=== PATIENT | male | born 1985 ===

== ENCOUNTER 2025-04-15 13:05 | Inpatient (IN) | payer BC, OTHER ==
[~2025-04-15] VITALS: Ht 175.3 cm; Wt 128.2 kg
[2025-04-15 14:45] VITALS: BP 135/83
[2025-04-15] MEDS ORDERED: BUPR75 PO (15:40)
[2025-04-15] MEDS ORDERED: DECARA1250 MC1 PO (15:43)
[2025-04-15] MEDS ORDERED: FAMO20 PO (15:44)
[2025-04-15] MEDS ORDERED: FARXIGA10 MG PO (15:44)
[2025-04-15] MEDS ORDERED: FENO145 PO (15:45)
[2025-04-15] MEDS ORDERED: NOVOLOG100 UNIT/2 SC (15:46)
[2025-04-15] MEDS ORDERED: Crestor40 MG PO (15:47)
[2025-04-15] MEDS ORDERED: BASAGLAR K100 UNIT/1 SC (15:47)
[2025-04-15 16:13] VITALS: BP 143/88
[2025-04-15] MEDS ORDERED: Cefepime HCl 2,000 MG in NS 100 ML IV SCH (16:30)
[2025-04-15] MEDS ORDERED: MetroNIDAZOLE 500MG/NS 100 ml 100 ML IV SCH (16:30)
[2025-04-15] MEDS ORDERED: Vancomycin (Pharmacy Consult) IV SCH (17:00)
[2025-04-15] MEDS ORDERED: NS 1,000 ML IV SCH (17:00)
[2025-04-15] MEDS ORDERED: OxyCODONE 5 mg/Acetamin 325 mg TABLET PO PRN (17:05)
[2025-04-15] MEDS ORDERED: Vancomycin HCL 2,500 MG in NS 500 ML IV ONE (18:00)
[2025-04-15 18:15] LABS: BASOPHILS ABSOLUTE AUTO 0.05 K/mm3 (0.00-0.23); BASOPHILS PERCENT AUTO 0 % (0-2); EOSINOPHILS ABSOLUTE AUTO 0.19 K/mm3 (0.00-0.68); EOSINOPHILS PERCENT AUTO 1 % (0-6); Hematocrit 25.6 % (37.0-53.0); Hemoglobin 7.8 g/dL (13.5-17.5); IMMATURE GRAN ABSOLUTE AUTO 0.17 K/mm3 (0.00-0.10); IMMATURE GRAN PERCENT AUTO 1 % (0-1); LYMPHOCYTES ABSOLUTE AUTO 0.65 K/mm3 (0.84-5.20); LYMPHOCYTES PERCENT AUTO 5 % (21-46); MONOCYTES ABSOLUTE AUTO 1.20 K/mm3 (0.16-1.47); MONOCYTES PERCENT AUTO 9 % (4-13); Mean Corpuscular HGB Conc 30.5 g/dL (31.5-36.5); Mean Corpuscular Volume 87 fL (80-100); NEUTROPHILS ABSOLUTE AUTO 11.56 K/mm3 (1.96-9.15); NEUTROPHILS PERCENT AUTO 84 % (41-73); NRBC ABSOLUTE 0.02 K/mm3 (0.00-0.02); NRBC Auto 0.1 /100 WBC (0.0-0.2); Platelet Count 309 K/mm3 (150-400); RDW Coefficient Variation 16.4 % (11.7-14.2); RDW Standard Deviation 52.3 fL (35.1-46.3)
[2025-04-15 19:22] LABS: Alanine Aminotransfer (ALT/SGP 53 U/L (12-78); Albumin, Blood 1.9 g/dL (3.4-5.0); Albumin/Globulin Ratio 0.3 (0.8-1.8); Anion Gap 11 mmol/L (3-11); Aspartate Aminotrans (AST/SGOT 147 U/L (12-37); Bilirubin, Total 0.6 mg/dL (0.1-1.0); Blood Urea Nitrogen 92 mg/dL (8-24); C-REACTIVE PROTEIN, EXT RANGE >19.000 mg/dL (0.000-0.300); CO2, Blood 21 mmol/L (21-32); Calcium, Blood 8.7 mg/dL (8.5-10.1); Chloride, Blood 107 mmol/L (98-108); Creatinine, Blood 7.42 mg/dL (0.60-1.20); Globulin, Blood 5.5 g/dL (2.2-4.0); Glucose, Blood 164 mg/dL (70-99); Potassium, Blood 5.2 mmol/L (3.5-5.5); Sodium, Blood 134 mmol/L (136-145); Total Protein, Blood 7.4 g/dL (6.4-8.2)
--- NOTE | 2025-04-15 19:32 | NUR ---
RIGHT FOOT ULCER--DRESSING APPLIED DRESSED RIGHT FOOT WITH STERILE GAUZE AND MEDIPORE TAPE. WRAPPED FOOT WITH ROLLED GAUZE AND SECURED WITH TAPE. WRAPPED WITH TRISTAN WRAP. PT TOLERATED WELL. PT REPORTS OCCASIONAL SHARP SHOOTING PAIN TO RIGHT FOOT. WOUND NOTED TO HAVE SMALL AMOUNT OF PURULENT DRAINAGE AND MALODOROUS. CONSULT TO PODIATRY, DR LAL DONE ON DAY SHIFT.
[2025-04-15 19:34] LABS: Ferritin, Serum 912.0 ng/mL (26-388); Total Iron Binding Capacity 265.0 ug/dL (250-450)
[2025-04-15 20:17] LABS: Source, Urine Voided
[2025-04-15 20:20] VITALS: BP 143/84
[2025-04-15 20:27] LABS: Bilirubin, Urine Neg (Neg); Color, Urine Yellow (P-Yellow); Glucose Qualitative, Urine 3+ (Neg); Ketones, Urine Neg (Neg); Leukocyte Esterase, Urine Neg (Neg); Protein, Urine 4+ (Neg); Specific Gravity, Urine 1.015 (1.003-1.022); Urobilinogen, Urine NORM (Normal)
[2025-04-15] MEDS ORDERED: Heparin Sodium,Porcine 5,000 UNIT/0.5 ML SDV SC SCH (21:00)
[2025-04-15] MEDS ORDERED: Insulin Human Lispro 100 Units/ML 3ML Syringe SC SCH (21:00)
[2025-04-15] MEDS ORDERED: Insulin Glargine,Hum.Rec.Anlog 100 UNIT/ML 3MLSYR SC SCH (21:00)
[2025-04-16] VITALS (18 sets, daily range): BP systolic 114–145; BP diastolic 72–91
[2025-04-16 06:49] LABS: BASOPHILS ABSOLUTE AUTO 0.07 K/mm3 (0.00-0.23); BASOPHILS PERCENT AUTO 1 % (0-2); EOSINOPHILS ABSOLUTE AUTO 0.24 K/mm3 (0.00-0.68); EOSINOPHILS PERCENT AUTO 2 % (0-6); Hematocrit 23.0 % (37.0-53.0); Hemoglobin 7.1 g/dL (13.5-17.5); IMMATURE GRAN ABSOLUTE AUTO 0.35 K/mm3 (0.00-0.10); IMMATURE GRAN PERCENT AUTO 2 % (0-1); LYMPHOCYTES ABSOLUTE AUTO 0.67 K/mm3 (0.84-5.20); LYMPHOCYTES PERCENT AUTO 4 % (21-46); MONOCYTES ABSOLUTE AUTO 1.20 K/mm3 (0.16-1.47); MONOCYTES PERCENT AUTO 8 % (4-13); Mean Corpuscular HGB Conc 30.9 g/dL (31.5-36.5); Mean Corpuscular Volume 86 fL (80-100); NEUTROPHILS ABSOLUTE AUTO 12.71 K/mm3 (1.96-9.15); NEUTROPHILS PERCENT AUTO 83 % (41-73); NRBC ABSOLUTE 0.00 K/mm3 (0.00-0.02); NRBC Auto 0.0 /100 WBC (0.0-0.2); Platelet Count 325 K/mm3 (150-400); RDW Coefficient Variation 16.5 % (11.7-14.2); RDW Standard Deviation 53.0 fL (35.1-46.3)
[2025-04-16 07:19] LABS: Albumin, Blood 1.9 g/dL (3.4-5.0); Anion Gap 13 mmol/L (3-11); Blood Urea Nitrogen 99 mg/dL (8-24); CO2, Blood 19 mmol/L (21-32); Calcium, Blood 8.5 mg/dL (8.5-10.1); Chloride, Blood 108 mmol/L (98-108); Creatinine, Blood 7.59 mg/dL (0.60-1.20); Glucose, Blood 128 mg/dL (70-99); Phosphorus, Blood 4.4 mg/dL (2.5-4.9); Potassium, Blood 5.3 mmol/L (3.5-5.5); Sodium, Blood 135 mmol/L (136-145); Vancomycin, Random 31.6 ug/mL
[2025-04-16] MEDS ORDERED: Cefepime HCl 1,000 MG in NS 100 ML IV SCH (09:00)
[2025-04-16] MEDS ORDERED: Lidocaine HCl 2% 10 ML SDA ONE (09:55)
[2025-04-16] MEDS ORDERED: Bupivacaine 0.5% HCl 5 MG/ML 30MLVIAL ONE (09:56)
--- NOTE | 2025-04-16 10:29 | NUR ---
PT HAS 20G IV TO RIGHT AC THAT FLUSHES WELL AND FLOWS TO GRAVITY.
--- NOTE | 2025-04-16 10:47 | NUR ---
Pt brought from floor to Day Surgery for procedure with Dr. Perez. History, Chart, Medications and Allergies reviewed before start of procedure. Patient confirms NPO status and agrees with scheduled surgery. Pre-Op teaching done. Pt verbalizes understanding. Pt belongings left in personal room on Medical Floor for safekeeping.
[2025-04-16] MEDS ORDERED: Midazolam HCl 1MG / ML 2ML Vial ONE ×2 (11:05→11:17)
[2025-04-16] MEDS ORDERED: Ondansetron HCl 2 MG / ML 2ML Vial ONE (11:06)
--- NOTE | 2025-04-16 14:56 | NUR ---
PT BACK IN ROOM AND DOING WELL, VSS, DENIES PAIN AT THIS TIME. DRESSING ON RLE CDI.
--- NOTE | 2025-04-16 17:08 | NUR ---
PT DOING WELL S/P R TOE AMPUTATION. VSS REMAIN STABLE PT TOLORATING PO INTAKE. IV FLUIDS AND ANTIBIOTICS CONTINUES. TRENDING RENAL FUNCTION. DR. GOODMAN CONSULTED. DRESSING IS C/D/I. CULTURES PENDING FROM PROCEDURE
[2025-04-17 05:10] VITALS: BP 149/90
--- NOTE | 2025-04-17 05:48 | NUR ---
SURVEY COMPILER SUMMARY NO ACUTE EVENTS. PT POST OP FROM RIGHT BIG TOE AMPUTATION. NO ORDERS FOR WEIGHT BEARING STATUS--EDUCATED PT TO BE NWB AT THIS TIME AND TO ELEVATE RLE TOLERATED. REENFORCED THIS EDUCATION T/O THE NIGHT. DRESSING TO THE RIGHT FOOT SATURATED WITH SEROSANGUINEOUS EXUDATE. OUTER TRISTAN WRAP AND KERLEX WERE REMOVED AND REPLACED. PT TOLERATED WELL. ONGOING PAIN ASSESSMENTS T/O THE NIGHT--PT DENIES PAIN AND DENIES NEED FOR PAIN INTERVENTION. ENCOURAGED PT TO CALL WITH NEEDS AND IF PAIN INCREASES. VSS. PT ABLE TO MAKE NEEDS KNOWN AND CALL LIGHT ACCESSIBLE. REGULAR INTERVAL ROUNDING DONE T/O THE SHIFT. CARE WILL CONTINUE UNTIL REPORT GIVEN TO ONCOMING NURSE.
[2025-04-17 06:14] LABS: Albumin, Blood 1.8 g/dL (3.4-5.0); Anion Gap 12 mmol/L (3-11); Blood Urea Nitrogen 96 mg/dL (8-24); CO2, Blood 19 mmol/L (21-32); Calcium, Blood 8.3 mg/dL (8.5-10.1); Chloride, Blood 109 mmol/L (98-108); Creatinine, Blood 7.71 mg/dL (0.60-1.20); Glucose, Blood 107 mg/dL (70-99); Phosphorus, Blood 4.6 mg/dL (2.5-4.9); Potassium, Blood 5.1 mmol/L (3.5-5.5); Sodium, Blood 135 mmol/L (136-145); Total Iron Binding Capacity 220 ug/dL (250-450); Vancomycin, Random 19.0 ug/mL
[2025-04-17 07:39] VITALS: BP 125/77
[2025-04-17] MEDS ORDERED: Cholecalciferol 1000 Unit Tablet (=25MCG) PO SCH (09:00)
[2025-04-17] MEDS ORDERED: Epoetin Alfa-EPBX 10,000 Unit/ML 1ML Vial SC SCH (09:00)
[2025-04-17 09:23] LABS: Hematocrit 22.8 % (37.0-53.0); Hemoglobin 7.1 g/dL (13.5-17.5)
[2025-04-17 12:19] LABS: Hematocrit 23.4 % (37.0-53.0); Hemoglobin 7.2 g/dL (13.5-17.5); Mean Corpuscular HGB Conc 30.8 g/dL (31.5-36.5); Mean Corpuscular Volume 86 fL (80-100); NRBC ABSOLUTE 0.07 K/mm3 (0.00-0.02); NRBC Auto 0.5 /100 WBC (0.0-0.2); Platelet Count 328 K/mm3 (150-400); RDW Coefficient Variation 16.8 % (11.7-14.2); RDW Standard Deviation 53.1 fL (35.1-46.3)
[2025-04-17 13:25] LABS: BAND PERCENT MAN 4 % (0-8); BASOPHILS ABSOLUTE MAN 0.00 K/mm3 (0.00-0.23); BASOPHILS PERCENT MAN 0 % (0-2); EOSINOPHILS ABSOLUTE MAN 0.29 K/mm3 (0.00-0.68); EOSINOPHILS PERCENT MAN 2 % (0-6); LYMPHOCYTES ABSOLUTE MAN 1.02 K/mm3 (0.84-5.20); LYMPHOCYTES PERCENT MAN 7 % (21-46); METAMYELOCYTE ABSOLUTE MAN 0.73 K/mm3 (0.00-0.00); METAMYELOCYTE PERCENT MAN 5 % (0-0); MONOCYTES ABSOLUTE MAN 1.46 K/mm3 (0.16-1.47); MONOCYTES PERCENT MAN 10 % (4-13); NEUTROPHILS ABSOLUTE MAN 11.10 K/mm3 (1.96-9.15); SEG NEUTROPHILS PERCENT MAN 72 % (41-73)
[2025-04-17] MEDS ORDERED: Ondansetron 4 MG SoluTab SL PRN (13:30)
[2025-04-17 14:43] VITALS: BP 153/90
[2025-04-17 18:15] VITALS: BP 152/89
--- NOTE | 2025-04-17 19:39 | NUR ---
SHIFT SUMMARY PT IS A/Ox4. PLEASANT AND COOPERATIVE WITH CARE. PT IS INDEPENDENT IN ROOM AND PWB TO HIS RLE, WEIGHT ON HEEL ONLY. PAIN IN HIS LEFT HIP IS BEING TREATED PER EMAR. PT IS CURRENTLY IN BED WATCHING TV WITH SPOUSE AT BEDSIDE.
[2025-04-17] MEDS ORDERED: Lactobacil 2-S.Thermo-Bifido 1 1 Cap PO SCH (21:00)
[2025-04-17 21:03] VITALS: BP 150/89
--- NOTE | 2025-04-18 03:41 | NUR ---
SHIFT SUMMARY NO ACUTE EVENTS DURING THIS SHIFT. RIGHT FOOT DRESSING C/D/I. POD #1. HS BG 162. PT REPORTS INTERMITTENT NAUSEA, DENIED A NEED FOR PRN ANTI-EMETIC. PT'S FIANCE SPENDING THE NIGHT IN THE HOSPITAL ROOM. PT REPORTS PAIN IN RLE 7/10, MEDICATED PER EMAR WITH GOOD EFFECTIVNESS. BED AT THE LOWEST POSITION, CALL LIGHT W/I REAWCH. NS INFUSING ORDERED. IV ABX'S INFUSED ORDERED.
[2025-04-18 05:11] VITALS: BP 142/88
[2025-04-18 05:32] LABS: Hematocrit 24.1 % (37.0-53.0); Hemoglobin 7.5 g/dL (13.5-17.5); Mean Corpuscular HGB Conc 31.1 g/dL (31.5-36.5); Mean Corpuscular Volume 86 fL (80-100); NRBC ABSOLUTE 0.14 K/mm3 (0.00-0.02); NRBC Auto 0.9 /100 WBC (0.0-0.2); Platelet Count 346 K/mm3 (150-400); RDW Coefficient Variation 17.1 % (11.7-14.2); RDW Standard Deviation 53.9 fL (35.1-46.3)
[2025-04-18 06:17] LABS: Albumin, Blood 1.9 g/dL (3.4-5.0); Anion Gap 12 mmol/L (3-11); Blood Urea Nitrogen 107 mg/dL (8-24); CO2, Blood 19 mmol/L (21-32); Calcium, Blood 8.3 mg/dL (8.5-10.1); Chloride, Blood 110 mmol/L (98-108); Creatinine, Blood 7.82 mg/dL (0.60-1.20); Glucose, Blood 115 mg/dL (70-99); Phosphorus, Blood 5.4 mg/dL (2.5-4.9); Potassium, Blood 5.3 mmol/L (3.5-5.5); Sodium, Blood 136 mmol/L (136-145); Vancomycin, Random 31.0 ug/mL
[2025-04-18 07:18] VITALS: BP 152/96
[2025-04-18 16:13] VITALS: BP 151/91
[2025-04-18 17:35] VITALS: BP 156/91
--- NOTE | 2025-04-18 18:05 | NUR ---
SHIFT SUMMARY: PATIENT A/OX4, PLEASANT AND COOPERATIVE c CARE. PATIENT DENIES CP/PRESSURE, SOB, N/V AND DIZZINESS. PATIENT RECEIVED IV ABX/SCHEDULED MEDS PER EMAR. DR. LAL DID DRESSING CHANGED TO R FOOT TODAY. PATIENT HAS GOOD APPETITE, CONTINENT OF BAB, AND AMBULATES TO BATHROOM INDEPENDENTLY c PWB TO R FOOT. PATIENT SPOKE TO DR. LI (NEPHROLOGY) VIA TELEHEALTH-ZOOM TODAY. VITAL SIGNS REVIEWED. CALL LIGHT IN REACH.
[2025-04-18 20:35] VITALS: BP 162/91
--- NOTE | 2025-04-19 03:11 | NUR ---
SHIFT SUMMARY NO ACUTE EVENTS DURING THIS SHIFT. PT DENIES PAIN, SOB AND N/V. HS BG 151. PT REMAINED IN BED RESTING T/O THIS SHIFT. NO ACUTE DISTRESS NOTED/REPORTED. PT ABLE TO MAKE HIS NEEDS KNOWN AND COOPERATIVE WITH CARE. RIGHT FOOT ELEVATED WITH A PILLOW. RIGHT FOOT DRESSING C/D/I. NS INFUSING ORDERED. BED AT THE LOWEST POSITION, CALL LIGHT W/I REACH.
[2025-04-19 05:01] VITALS: BP 152/90
[2025-04-19 06:09] LABS: ALPHA 1 GLOBULIN 0.68 g/dL (0.19-0.46); ALPHA 2 GLOBULIN 1.01 g/dL (0.48-1.05); BETA GLOBULIN 1.04 g/dL (0.48-1.10); GAMMA 1.27 g/dL (0.62-1.51); IMMUNOFIXATION REFLEX Not Done
[2025-04-19 07:28] VITALS: BP 144/84
[2025-04-19 08:25] LABS: Hematocrit 24.3 % (37.0-53.0); Hemoglobin 7.5 g/dL (13.5-17.5); Mean Corpuscular HGB Conc 30.9 g/dL (31.5-36.5); Mean Corpuscular Volume 86 fL (80-100); NRBC ABSOLUTE 0.16 K/mm3 (0.00-0.02); NRBC Auto 0.9 /100 WBC (0.0-0.2); Platelet Count 327 K/mm3 (150-400); RDW Coefficient Variation 17.3 % (11.7-14.2); RDW Standard Deviation 53.9 fL (35.1-46.3)
[2025-04-19 08:44] LABS: C-REACTIVE PROTEIN, EXT RANGE 12.600 mg/dL (0.000-0.300)
[2025-04-19 08:48] LABS: Albumin, Blood 1.8 g/dL (3.4-5.0); Anion Gap 10 mmol/L (3-11); Blood Urea Nitrogen 104 mg/dL (8-24); CO2, Blood 18 mmol/L (21-32); Calcium, Blood 8.3 mg/dL (8.5-10.1); Chloride, Blood 114 mmol/L (98-108); Creatinine, Blood 8.04 mg/dL (0.60-1.20); Glucose, Blood 145 mg/dL (70-99); Phosphorus, Blood 6.1 mg/dL (2.5-4.9); Potassium, Blood 5.4 mmol/L (3.5-5.5); Sodium, Blood 137 mmol/L (136-145)
[2025-04-19 08:51] LABS: Vancomycin, Random 28.5 ug/mL
--- NOTE | 2025-04-19 09:50 | NUR ---
pt eating breakfast, a/ox4, pleasant and cooperative with care, follows commands well, denies pain this am, lungs are clear but dim t/o, on r/a, no cough noted, hrr, 2-3+ edema noted to left le, r is wrapped in bulky dressing, power glide to gino, site is clear and patent, draws blood without diff, btx4, abd flat soft nontender, voids with out diff, reports bm's wnl, skin c/w/d, except his right foot, jonathan, licha, call light in reach.
[2025-04-19 16:54] VITALS: BP 160/91
--- NOTE | 2025-04-19 19:12 | NUR ---
Dr. Draper stopped fluids, had nurse call nephrology, charge nurse called. no further changes this shift. call light in reach.
[2025-04-19 19:58] VITALS: BP 164/89
[2025-04-19] MEDS ORDERED: CeFAZolin Sodium 1,000 MG in NS 50 ML IV SCH (21:00)
[2025-04-19] MEDS ORDERED: NS 250 ML IV PRN (21:00)
--- NOTE | 2025-04-20 03:27 | NUR ---
SHIFT SUMMARY NO ACUTE EVENTS DURING THIS SHIFT.PT DENIES PAIN AND DISCOMFORT. HS BG 176. RIGHT FOOT DRESSING C/D/I. ENCOURAGED TO ELEVATE LEGS WITH PILLOWS. IV ABX INFUSED ORDERED. PT IS A/OX4, VERY PLEASANT, COOPERATIVE WITH CARE. PT IS ABLE TO MAKE HIS NEEDS KNOWN. BED AT THE LOWEST POSITION, CALL LIGHT W/I REACH.
[2025-04-20 03:35] VITALS: BP 152/89
[2025-04-20 05:05] LABS: Hematocrit 23.3 % (37.0-53.0); Hemoglobin 7.3 g/dL (13.5-17.5); Mean Corpuscular HGB Conc 31.3 g/dL (31.5-36.5); Mean Corpuscular Volume 86 fL (80-100); NRBC ABSOLUTE 0.14 K/mm3 (0.00-0.02); NRBC Auto 0.7 /100 WBC (0.0-0.2); Platelet Count 303 K/mm3 (150-400); RDW Coefficient Variation 17.4 % (11.7-14.2); RDW Standard Deviation 54.0 fL (35.1-46.3)
[2025-04-20 05:27] LABS: Albumin, Blood 1.7 g/dL (3.4-5.0); Anion Gap 13 mmol/L (3-11); Blood Urea Nitrogen 110 mg/dL (8-24); CO2, Blood 17 mmol/L (21-32); Calcium, Blood 7.9 mg/dL (8.5-10.1); Chloride, Blood 114 mmol/L (98-108); Creatinine, Blood 7.91 mg/dL (0.60-1.20); Glucose, Blood 160 mg/dL (70-99); Phosphorus, Blood 6.2 mg/dL (2.5-4.9); Potassium, Blood 5.3 mmol/L (3.5-5.5); Sodium, Blood 139 mmol/L (136-145)
[2025-04-20 07:14] VITALS: BP 150/88
--- NOTE | 2025-04-20 11:06 | NUR ---
NOTE THIS RN SPOKE WITH DR. LAL ON PHONE TO CLARIFY IF PT SHOULD HAVE WOUND CARE ORDERS. DR LAL STATES "DOESN'T NEED WOUND CARE ORDERS, JUST MAKE SURE DRESSING INTACT, PT KNOWS TO FOLLOW UP WITH IN [facility]." THIS RN NOTIFED PT WBC TRENDING UP, DR. LAL SAID "GOOD IDEA TO FOLLOW UP WITH [facility] ABOUT BLOOD CULTURES AND URINE CULTURES PER DR. MADRID. PT HAD IV ANTIBIOTICS THIS AM.
--- NOTE | 2025-04-20 13:48 | NUR ---
NOTE THIS RN CALLED [facility]. [facility] REPORTED "WILL FAX OVER COMPLETED URINE AND BLOOD CULTURE TO [facility]." THIS RN GAVE FAX NUMBER TO FLOOR.
--- NOTE | 2025-04-20 14:39 | NUR ---
NOTE THIS RN RECEIVED FAX FROM [facility], IN PT CHART. DR. MADRID NOTIFIED OF BLOOD CULTURE AND URINE CULTURE.
[2025-04-20 16:43] VITALS: BP 159/87
--- NOTE | 2025-04-20 19:20 | NUR ---
SHIFT SUMMARY P A&OX4. PT REPORTS NO CHEST PAIN/GEN PAIN/SOB. PT ADMITTED DUE TO OSTEOMYLYTIS. DR. MADRID ORDERED PT/OT. DRESSING ON R FOOT INTACT. PT EDUCATED ON PWB. SMALL MEPILEX BANDAGE APPLIED TO L TOE, HAS DIABETIC FOOT ULCER. PT DOES NOT HAVE FARIA. PT URINATES ADEQUATE AND IS CONT. NEPHROLOGY CONSULTED DR. GOODMAN SAW PT. PT IN BED, BED IN LOWEST POSITION, CALL LIGHT IN REACH. PT ACHS, INSULIN COVERED. PT EATS ADEQUATE.
[2025-04-20 20:34] VITALS: BP 149/84
--- NOTE | 2025-04-21 02:43 | NUR ---
SHIFT SUMMARY NO ACUTE EVENTS DURING THIS SHIFT. BY THE BEDSIDE @HS. PT'S RIGHT FOOT DRESSING WET, REPORTS TAKING A SHOWER AND WETTING THE TOP DRESSING LAYER. THIS CREDENTIALING ANALYST CHANGED THE TRISTAN BANDAGE. NOW C/D/I. PT TOLERATED WELL. PT DENIES PAIN AND DISCOMFORT AT HS. ENCOURAGED THE PT TO ELEVATE BLE'S WITH PILLOWS. BLE EDEMA +2. RIGHT LE WORSE THAN LEFT. PT AMBULATES INDEPENDENTLY W/O FWW OR ASSISTING DEVICE. ORDER FOR AMBULATION IS PARTIAL WT BEARING FOR THE RIGHT FOOT. ACTIVE ORDER FOR PT/OT. HS BG 218. INSULIN ADMINISTERED ORDERED. PT HAS NO COMPLAINTS OR CONCERNS AT THIS TIME. RESTING WELL W/O ACUTE DISTRESS T/O THE NIGHT HRS. BED AT THE LOWEST POSITION, CALL LIGHT W/I REACH. PT IS ABLE TO ADVOCATE HIS NEEDS.
[2025-04-21 05:29] LABS: Hematocrit 24.3 % (37.0-53.0); Hemoglobin 7.5 g/dL (13.5-17.5); Mean Corpuscular HGB Conc 30.9 g/dL (31.5-36.5); Mean Corpuscular Volume 86 fL (80-100); NRBC ABSOLUTE 0.12 K/mm3 (0.00-0.02); NRBC Auto 0.5 /100 WBC (0.0-0.2); Platelet Count 309 K/mm3 (150-400); RDW Coefficient Variation 17.2 % (11.7-14.2); RDW Standard Deviation 52.6 fL (35.1-46.3)
[2025-04-21 06:07] LABS: Magnesium, Blood 2.2 mg/dL (1.6-2.4)
[2025-04-21 06:15] LABS: Albumin, Blood 1.8 g/dL (3.4-5.0); Anion Gap 13 mmol/L (3-11); Blood Urea Nitrogen 110 mg/dL (8-24); CO2, Blood 17 mmol/L (21-32); Calcium, Blood 8.0 mg/dL (8.5-10.1); Chloride, Blood 113 mmol/L (98-108); Creatinine, Blood 8.14 mg/dL (0.60-1.20); Glucose, Blood 210 mg/dL (70-99); Phosphorus, Blood 5.9 mg/dL (2.5-4.9); Potassium, Blood 5.4 mmol/L (3.5-5.5); Sodium, Blood 138 mmol/L (136-145)
--- NOTE | 2025-04-21 06:16 | NUR ---
@4396 THIS BUTT SAWYER RECEIVED A PHONE CALL FROM LAB FROM [facility]. PT'S CREATININE LAB LEVEL THIS MORNIN.14. THIS BUTT SAWYER NOTIFIED THE ON-CALL HOSPITALIST DR. PEDERSON @0120. NO NEW ORDERS AT THIS TIME. CHARGE NURSE NOT NOTIFIED, D/T CHARGE NURSE IN REPORT.
[2025-04-21 07:21] VITALS: BP 162/89
--- NOTE | 2025-04-21 08:09 | NUR ---
NOTE DR. LAL CAME TO DO WOUND DRESSING CHANGE ON R FOOT. DR. LAL STATED "HAVE PT BE NPO, TRYING FOR SURGERY AT NOON." HELD BREAKFAST.
[2025-04-21] MEDS ORDERED: Vitamin B Cmplx/Vit C/Folic Ac 1 Tab PO SCH (09:00)
[2025-04-21] MEDS ORDERED: Torsemide 20 MG TAB PO SCH (09:00)
--- NOTE | 2025-04-21 15:31 | NUR ---
NOTE DR. LAL NOTIFIED THIS RN THAT PT NPO TONIGHT AT MIDNIGHT. PT CAN EAT. SURGERY RESCHEDULED FOR TOMORROW.
--- NOTE | 2025-04-21 15:55 | NUR ---
NOTE DR. MADRID NOTIFIED PER THIS RN THAT DR. LAL IS DOING SURGERY ON PT TOMORROW AND WILL BE NPO AT MIDNIGHT. DR. MADRID SAID "OK TO HOLD THE DAILY MEDS PT DID NOT GET THIS AM."
[2025-04-21 16:40] VITALS: BP 161/83
--- NOTE | 2025-04-21 19:23 | NUR ---
SHIFT SUMMARY P A&OX4. PT REPORTS NO CHEST PAIN/SOB. PT ADMITTED DUE TO OSTEOMYLYTIS. DRESSING ON R FOOT INTACT, CHANGED BY DR. LAL THIS AM. PLAN FOR NPO AT MIDNIGHT AND SURGERY TOMORROW. PT REPORTED PAIN ON R FOOT POST DRESSING CHANGE BY DR. LAL THIS AM. PT MEDICATED PER EMAR. PT EDUCATED ON PWB. PT WORKED WITH PHYSICAL THERAPY TODAY, PT REFUSED OT TODAY DUE TO "NOT FEELING WELL DUE TO BEING NPO FOR SURGERY" OT REPORTED WILL WORK W PT TOMORROW. PT REPORTS HAVING DIARHEA. PT DOES NOT HAVE FARIA. PT URINATES ADEQUATE AND IS CONT. NEPHROLOGY CONSULTED DR. GOODMAN SAW PT. DR. GOODMAN REPORTS "I KNOW PT'S LABS ARE OFF, PT NOT EXPERIENCING TOO MUCH SYMPTOMS WITH OFF LABS, WILL MONITOR, PT NOT AT POINT OF NEEDING DIALYSIS YET." PT IN BED, BED IN LOWEST POSITION, CALL LIGHT IN REACH. PT ACHS, INSULIN COVERED FOR DINNER. PT GOT IV ANTIBIOTIC. BLOOD PRESSURE ELEVATED TODAY. PT ON ROOM AIR. NO TEMPERATURE NOTED. TODAY.
[2025-04-21 20:03] VITALS: BP 150/85
[2025-04-21] MEDS ORDERED: Zinc Sulfate 220 MG Cap (Provides 50MG) PO SCH (21:00)
[2025-04-21 23:30] LABS: C DIFFICILE DNA NEGATIVE (Negative)
[2025-04-22] VITALS (10 sets, daily range): BP systolic 140–164; BP diastolic 77–91
[2025-04-22] MEDS ORDERED: Metoclopramide HCl 5MG / ML 2ML Vial IV PRN (00:25)
--- NOTE | 2025-04-22 04:43 | NUR ---
SHIFT SUMMARY NOC PT A/O X 4. PLEASANT AND COOPERATIVE WITH CARE. VSS. HS CBG 237 WITH 30 UNITS SCHEDULED GLARGINE GIVEN. PT CONTINUES HAVING LOOSE STOOLS. HOSPITALIST NOTIFIED AND C DIFF PANEL ORDERED AND WAS NEGATIVE. PT HAD C/O OF NAUSEA AND MEDICATED PER EMAR. DRESSING ON R FOOT IS C/D/I. PT HAS BEEN NPO SINCE MIDNIGHT FOR I&D TODAY @ 1400. POWERGLIDE IN KAM DRAWS WELL. PT SPOUSE STAYED NIGHT WITH PT. PT CURRENTLY RESTING WITH BED IN LOWEST POSITION, AND CALL LIGHT WITHIN REACH.
[2025-04-22 04:44] LABS: Albumin, Blood 1.7 g/dL (3.4-5.0); Anion Gap 15 mmol/L (3-11); Blood Urea Nitrogen 108 mg/dL (8-24); CO2, Blood 16 mmol/L (21-32); Calcium, Blood 8.1 mg/dL (8.5-10.1); Chloride, Blood 113 mmol/L (98-108); Creatinine, Blood 7.96 mg/dL (0.60-1.20); Glucose, Blood 202 mg/dL (70-99); Phosphorus, Blood 5.9 mg/dL (2.5-4.9); Potassium, Blood 5.1 mmol/L (3.5-5.5); Sodium, Blood 139 mmol/L (136-145)
[2025-04-22] MEDS ORDERED: Bupivacaine 0.5% HCl 5 MG/ML 30MLVIAL ONE (13:35)
--- NOTE | 2025-04-22 13:36 | NUR ---
FLUSHED KAM IV SITE WITH 10NS/PATENT.
[2025-04-22] MEDS ORDERED: Midazolam HCl 1MG / ML 2ML Vial ONE (14:18)
[2025-04-22] MEDS ORDERED: FentaNYL Citrate 50 MCG/ML 5 ML Injection ONE (14:18)
[2025-04-22] MEDS ORDERED: Vancomycin HCl 1000 MG ADDvantage ONE (14:29)
[2025-04-22] MEDS ORDERED: FentaNYL Citrate 50 MCG/ML 2 ML Injection ONE (14:35)
--- NOTE | 2025-04-22 15:38 | NUR ---
PT TO PACU FROM OR, S/P MAC ANESTH. NRB ON PER ANESTH. SATTING WELL, SEDATED. DSG CDI. POC BG 114 PT THEN AWAKENING, MAINTAINING SATS ON ROOM AIR, PLEASANT AND COOPERATIVE. PIV PATENT AFTER FLUSHING. WIGGLING FOOT FROM ANKLE, STATES FOOT NUMB. [id number] - CALL OUT TO FLOOR NURSE FOR REPORT, AWAITING CALLBACK
[2025-04-22] MEDS ORDERED: OxyCODONE 5 mg/Acetamin 325 mg TABLET PO PRN (16:25)
--- NOTE | 2025-04-22 18:01 | NUR ---
PT RETURNED FROM PACU 1755- VSS, A/O X4, ABLE TO AMBULATE FROM GOURNEY TO BED WITH PARTIAL WEIGHT BEARING TO BED, STEADY ON FEET. DENIES PAIN CURRENTLY. STARTED ON CLEAR LIQ DIET
--- NOTE | 2025-04-22 18:02 | NUR ---
SUMMARY- PT A.X 4, WORKED WITH O.T. TODAY, NEEDS REMINDERS OF PARTIAL WEIGHT BEARING, WITH WEIGHT MOSTLY ON HEEL. PT TAKEN TO SURGERY AROUND 1345 FOR I&D WITH DR LAL, RETURNED 1600. DENIES PAIN (HX NEUROPATHY). DR GOODMAN IN TO SEE PT THIS AM FOLLOWING KIDNEY/CKD- BLOOD SUGARS IN GOOD RANGE. STARTED CLEARS AFTER SG, ADVANCED TO CONSIST CARB DIET, TOLERATING FOOD AND FLUIDS WELL. VOIDED X2 THIS SHIFT, FORGOT TO MEASURE ONE VOID. WILL REPORT TO NOC RN
[2025-04-23 04:59] VITALS: BP 145/86
--- NOTE | 2025-04-23 05:41 | NUR ---
SHIFT SUMMARY: Pt is admitted for osteomyelitis and is a full code. Is alert and able to make needs known. ADLs were a mix of IND and SBA. pain was managed with PRN medications. Power glide to left upper is patent with dressing that is CDI. dressing that is to the right foot is CDI.
[2025-04-23 05:49] LABS: BASOPHILS ABSOLUTE AUTO 0.09 K/mm3 (0.00-0.23); BASOPHILS PERCENT AUTO 0 % (0-2); EOSINOPHILS ABSOLUTE AUTO 0.34 K/mm3 (0.00-0.68); EOSINOPHILS PERCENT AUTO 1 % (0-6); Hematocrit 23.5 % (37.0-53.0); Hemoglobin 7.4 g/dL (13.5-17.5); IMMATURE GRAN ABSOLUTE AUTO 1.05 K/mm3 (0.00-0.10); IMMATURE GRAN PERCENT AUTO 4 % (0-1); LYMPHOCYTES ABSOLUTE AUTO 1.30 K/mm3 (0.84-5.20); LYMPHOCYTES PERCENT AUTO 5 % (21-46); MONOCYTES ABSOLUTE AUTO 1.73 K/mm3 (0.16-1.47); MONOCYTES PERCENT AUTO 7 % (4-13); Mean Corpuscular HGB Conc 31.5 g/dL (31.5-36.5); Mean Corpuscular Volume 86 fL (80-100); NEUTROPHILS ABSOLUTE AUTO 20.46 K/mm3 (1.96-9.15); NEUTROPHILS PERCENT AUTO 82 % (41-73); NRBC ABSOLUTE 0.06 K/mm3 (0.00-0.02); NRBC Auto 0.2 /100 WBC (0.0-0.2); Platelet Count 333 K/mm3 (150-400); RDW Coefficient Variation 18.8 % (11.7-14.2); RDW Standard Deviation 54.1 fL (35.1-46.3)
[2025-04-23 07:04] LABS: Magnesium, Blood 2.2 mg/dL (1.6-2.4)
[2025-04-23 07:10] LABS: Albumin, Blood 1.8 g/dL (3.4-5.0); Anion Gap 17 mmol/L (3-11); Blood Urea Nitrogen 112 mg/dL (8-24); CO2, Blood 16 mmol/L (21-32); Calcium, Blood 8.3 mg/dL (8.5-10.1); Chloride, Blood 113 mmol/L (98-108); Creatinine, Blood 7.61 mg/dL (0.60-1.20); Glucose, Blood 153 mg/dL (70-99); Phosphorus, Blood 7.1 mg/dL (2.5-4.9); Potassium, Blood 5.9 mmol/L (3.5-5.5); Sodium, Blood 140 mmol/L (136-145)
[2025-04-23 07:27] VITALS: BP 150/82
[2025-04-23 16:23] VITALS: BP 157/85
--- NOTE | 2025-04-23 18:04 | NUR ---
SHIFT SUMMARY PATIENT A/OX4, ABLE TO MAKE NEEDS KNOWN. PLEASANT AND COOPERATIVE WITH CARE. INDEPENDENT IN ROOM WITH 50% WB TO RLE. POWERGLIDE DRESSING CHANGED TODAY. OXYCODONE ADMINISTERED X1 THIS SHIFT PRIOR TO PHYSICAL THERAPY. AT BEDSIDE THROUGHOUT SHIFT. DRESSINGS INTACT, NO WOUND CARE ORDERS DR. LAL CALLED AND VOICEMAIL LEFT REQUETSING WOUND CARE ORDERS. NO OTHER CONCERNS AT THIS TIME, WILL CONTINUE TO MONITOR.
[2025-04-23 19:57] VITALS: BP 152/86
[2025-04-24] VITALS (7 sets, daily range): BP systolic 154–168; BP diastolic 83–90
[2025-04-24 05:36] LABS: BASOPHILS ABSOLUTE AUTO 0.08 K/mm3 (0.00-0.23); BASOPHILS PERCENT AUTO 0 % (0-2); EOSINOPHILS ABSOLUTE AUTO 0.34 K/mm3 (0.00-0.68); EOSINOPHILS PERCENT AUTO 2 % (0-6); Hematocrit 23.4 % (37.0-53.0); Hemoglobin 7.4 g/dL (13.5-17.5); IMMATURE GRAN ABSOLUTE AUTO 0.67 K/mm3 (0.00-0.10); IMMATURE GRAN PERCENT AUTO 3 % (0-1); LYMPHOCYTES ABSOLUTE AUTO 1.56 K/mm3 (0.84-5.20); LYMPHOCYTES PERCENT AUTO 7 % (21-46); MONOCYTES ABSOLUTE AUTO 1.87 K/mm3 (0.16-1.47); MONOCYTES PERCENT AUTO 9 % (4-13); Mean Corpuscular HGB Conc 31.6 g/dL (31.5-36.5); Mean Corpuscular Volume 88 fL (80-100); NEUTROPHILS ABSOLUTE AUTO 16.91 K/mm3 (1.96-9.15); NEUTROPHILS PERCENT AUTO 79 % (41-73); NRBC ABSOLUTE 0.07 K/mm3 (0.00-0.02); NRBC Auto 0.3 /100 WBC (0.0-0.2); Platelet Count 314 K/mm3 (150-400); RDW Coefficient Variation 18.8 % (11.7-14.2); RDW Standard Deviation 53.8 fL (35.1-46.3)
--- NOTE | 2025-04-24 06:58 | NUR ---
SHIFT SUMMARY PT SLEPT RESTLESSLY THROUGHOUT SHIFT. HE IS INDEPENDENT IN ROOM AND HAS BEEN PLEASANT AND COOPERATIVE WITH HIS CARE. PT EXPRESSED CONCERN FOR BEING UNABLE TO SLEEP. WILL PASS ALONG TO DAY SHIFT.
[2025-04-24 07:51] LABS: Anion Gap 14.0 mmol/L (3-11); Blood Urea Nitrogen 110.0 mg/dL (8-24); CO2, Blood 18.0 mmol/L (21-32); Calcium, Blood 8.1 mg/dL (8.5-10.1); Chloride, Blood 114.0 mmol/L (98-108); Creatinine, Blood 7.55 mg/dL (0.60-1.20); Glucose, Blood 150.0 mg/dL (70-99); Potassium, Blood 4.9 mmol/L (3.5-5.5); Sodium, Blood 141.0 mmol/L (136-145)
[2025-04-24] MEDS ORDERED: HydrALAZINE HCl 20 MG / ML 1ML Vial IV PRN (17:00)
--- NOTE | 2025-04-24 17:57 | NUR ---
SHIFT SUMMARY PATIENT A/OX4, ABLE TO MAKE NEEDS KNOWN. PLEASANT AND COOPERATIVE WITH CARE. DENIES NEED FOR PAIN MEDICATION THIS SHIFT. ABLE TO SHOWER THIS AFTERNOON. COMPLAINING OF DIARRHEA, PRN IMMODIUM ADMINISTERED PER OCT. SYNTHETIC FILAMENT EXTRUDER CALLED THIS AFTERNNON TO OBTAIN WOUND CARE ORDERS FOR PATIENT. WOUND CARE PROVIDED PER ORDERS. THIS EVENING BLOOD PRESSURE ELEVATED SBP >160, DR. REYES NOTIFIED AND NEW ORDER RECIEVED FOR HYDRALAZINE. HYDRALAZINE ADMINISTERED PER OCT AND SCHEDULE BLOOD PRESSURE MEDICATIONS ADMINISTERED, WILL CONTINUE TO MONITOR BP. MELATONIN ORDERED PER DR. REYES PER PATIENT REQUEST HE TAKES AT HOME AND HAS BEEN HAVING DIFFICULTY SLEEPING. NO OTHER CONCERNS AT THIS TIME, WILL CONTINUE TO MONITOR.
[2025-04-25 04:20] VITALS: BP 156/98
--- NOTE | 2025-04-25 04:24 | NUR ---
NO ACUTE CHANGES DURING SHIFT. PATIENT ALERT AND ORIENTED X4, ABLE TO MAKE NEEDS KNOWN. PATIENT ON ROOM AIR SATING >92%. DRESSING C/D/I. PERCOCET GIVEN FOR PAIN. PATIENT IS UP INDEPENDENTLY IN THE ROOM. PATIENT HAS POWERGLIDE IN KAM, RECEIVING IV ANTIBIOTICS. BED IS LOW AND WHEELS ARE LOCKED. CALL LIGHT WITHIN REACH.
[2025-04-25 05:54] LABS: BASOPHILS ABSOLUTE AUTO 0.08 K/mm3 (0.00-0.23); BASOPHILS PERCENT AUTO 1 % (0-2); EOSINOPHILS ABSOLUTE AUTO 0.34 K/mm3 (0.00-0.68); EOSINOPHILS PERCENT AUTO 2 % (0-6); Hematocrit 23.1 % (37.0-53.0); Hemoglobin 7.0 g/dL (13.5-17.5); IMMATURE GRAN ABSOLUTE AUTO 0.33 K/mm3 (0.00-0.10); IMMATURE GRAN PERCENT AUTO 2 % (0-1); LYMPHOCYTES ABSOLUTE AUTO 1.54 K/mm3 (0.84-5.20); LYMPHOCYTES PERCENT AUTO 10 % (21-46); MONOCYTES ABSOLUTE AUTO 1.61 K/mm3 (0.16-1.47); MONOCYTES PERCENT AUTO 10 % (4-13); Mean Corpuscular HGB Conc 30.3 g/dL (31.5-36.5); Mean Corpuscular Volume 88 fL (80-100); NEUTROPHILS ABSOLUTE AUTO 12.33 K/mm3 (1.96-9.15); NEUTROPHILS PERCENT AUTO 76 % (41-73); NRBC ABSOLUTE 0.03 K/mm3 (0.00-0.02); NRBC Auto 0.2 /100 WBC (0.0-0.2); Platelet Count 311 K/mm3 (150-400); RDW Coefficient Variation 19.3 % (11.7-14.2); RDW Standard Deviation 55.9 fL (35.1-46.3)
[2025-04-25 06:17] LABS: Anion Gap 12.0 mmol/L (3-11); Blood Urea Nitrogen 100.0 mg/dL (8-24); CO2, Blood 20.0 mmol/L (21-32); Calcium, Blood 8.2 mg/dL (8.5-10.1); Chloride, Blood 112.0 mmol/L (98-108); Creatinine, Blood 7.35 mg/dL (0.60-1.20); Glucose, Blood 123.0 mg/dL (70-99); Potassium, Blood 4.4 mmol/L (3.5-5.5); Sodium, Blood 140.0 mmol/L (136-145)
[2025-04-25 07:23] VITALS: BP 148/82
[2025-04-25] MEDS ORDERED: ACET325 PO (15:51)
[2025-04-25] MEDS ORDERED: AMLO5 PO (15:52)
[2025-04-25] MEDS ORDERED: [UNRECOGNIZED DRUG - CODE] SC (15:53)
[2025-04-25] MEDS ORDERED: CARV25 PO (15:53)
[2025-04-25] MEDS ORDERED: NEPHRO VITAMIN0.8 MG PO (15:53)
[2025-04-25] MEDS ORDERED: MELATONIN5 M1 PO (15:54)
[2025-04-25] MEDS ORDERED: FERSU300 PO (15:54)
[2025-04-25] MEDS ORDERED: Percocet 5-3251 EACH PO (15:54)
[2025-04-25] MEDS ORDERED: TORSE20 PO (15:55)
[2025-04-25] MEDS ORDERED: VISBIOME 112.51 EACH PO (15:55)
[2025-04-25] MEDS ORDERED: SEVEC800 PO (15:55)
[2025-04-25] MEDS ORDERED: ZINC220 PO (15:56)
[2025-04-25] MEDS ORDERED: AMOX-CLAV 500-1 EAC5 PO (15:57)
--- NOTE | 2025-04-25 19:20 | NUR ---
DISCHARGE NOTE PT A&OX4. PT ADMITTED DUE TO OSTEOMYLITIS. ORDERED DISCHARGE. PT IS PWB 50% ON R FOOT. ULTRASONIC TESTER KARLEY COMPLETED WOUND CARE PER ORDER. PT REPORTS PAIN, MANAGED PER EMAR. HARD SCRIPT COPY IN CHART. PT SENT WITH HARD SCRIPT. ULTRASONIC TESTERRADHA ALMARAZ COMPLETED DISCHARGE AND WENT OVER DISCHARGE INSTRUCTIONS W PT. PT VSS. MEDS FAXED TO PREFERRED PHARMACY. PT ESCORTED TO PATIENT ENTERANCE VIA WHEELCHAIR BY THIS RN. IV D/C.
== END 2025-04-25 16:15 | disposition home or self-care (01) | DRG 853 ==
LOC: MEDS 13:05 → ENPENDDIS 04-25 11:24 → MEDS 04-25 16:15
PROVIDERS: Hospitalist; Internal Medicine; Nurse Practitioner Acute Care; Podiatrist Foot & Ankle Surgery; ADMIT Internal Medicine
PROC: 3E03329 Introduction of Other Anti-infective into Peripheral Vein, Percutaneous Approach (ICD-10-PCS; 2025-04-16)
PROC: 0Y6M0Z9 Detachment at Right Foot, Partial 1st Ray, Open Approach (ICD-10-PCS; principal; 2025-04-16 11:00)
PROC: 0QDN0ZZ Extraction of Right Metatarsal, Open Approach (ICD-10-PCS; 2025-04-22)
DX: A41.9 Sepsis, unspecified organism (principal); A48.0 Gas gangrene; E11.52 Type 2 diabetes mellitus with diabetic peripheral angiopathy with gangrene; M86.171 Other acute osteomyelitis, right ankle and foot; N17.9 Acute kidney failure, unspecified; L03.115 Cellulitis of right lower limb; E87.20 Acidosis, unspecified; E46 Unspecified protein-calorie malnutrition; N18.4 Chronic kidney disease, stage 4 (severe); Z68.41 Body mass index [BMI] 40.0-44.9, adult; E11.621 Type 2 diabetes mellitus with foot ulcer; L97.519 Non-pressure chronic ulcer of other part of right foot with unspecified severity; J43.9 Emphysema, unspecified; E11.69 Type 2 diabetes mellitus with other specified complication; I12.9 Hypertensive chronic kidney disease with stage 1 through stage 4 chronic kidney disease, or unspecified chronic kidney disease; F32.9 Major depressive disorder, single episode, unspecified; D50.9 Iron deficiency anemia, unspecified; E11.22 Type 2 diabetes mellitus with diabetic chronic kidney disease; E11.42 Type 2 diabetes mellitus with diabetic polyneuropathy; B95.4 Other streptococcus as the cause of diseases classified elsewhere; D63.8 Anemia in other chronic diseases classified elsewhere; E78.1 Pure hyperglyceridemia; G47.00 Insomnia, unspecified; K21.9 Gastro-esophageal reflux disease without esophagitis; Z79.899 Other long term (current) drug therapy; Z79.4 Long term (current) use of insulin; E66.01 Morbid (severe) obesity due to excess calories; E11.65 Type 2 diabetes mellitus with hyperglycemia; E83.39 Other disorders of phosphorus metabolism; E87.5 Hyperkalemia
CPT/HCPCS: 36415; 73630; 73700; 76770; 80048; 80053; 80069; 80202; 81001; 82570; 82607; 82728; 82746; 82784; 82947; 83521; 83540; 83550; 83605; 83735; 84155; 84156; 84165; 85014; 85018; 85025; 85027; 85651; 86140; 86334; 87040; 87071; 87075; 87077; 87147; 87186; 87205; 87340; 87493; 88305; 88311; 97112; 97116; 97162; 97165; 97530; 97535; A6253; A9270; J0360; J0690; J0692; J1644; J2003; J2250; J2405; J2704; J2765; J3010; J3373; J7030; J7040; J7050; J7120; Q5106